=== PATIENT | female | born 1960 | race Caucasian/White ===

== ENCOUNTER 2016-11-27 08:26 | Day surgery (SDC) | payer OTHER ==
[~2016-11-27] VITALS: Ht 165.1 cm; Wt 64.7 kg
[~2016-11-27 08:26] MED LIST: CYAN1TAB29 PO; LEVO25TA4 PO
[2016-11-27] MEDS ORDERED: LACTATED RINGERS 1,000 ML IV SCH (08:59)
[2016-11-27] MEDS ORDERED: LIDOCAINE 1%, 2ML SQ PRN (09:00)
[2016-11-27] MEDS ORDERED: LIDOCAINE 1%, 2ML ONE (09:03)
[2016-11-27] MEDS ORDERED: INDOCYANINE GREEN 25 MG VIAL ONE (09:08)
[2016-11-27] MEDS ORDERED: EPINEPHRINE SYRINGE 0.1 MG/ML, 10ML ONE (09:08)
[2016-11-27 09:15] VITALS: BP 143/89
[2016-11-27] MEDS ORDERED: PROPOFOL 10 MG/ML, 50ML ONE (10:40)
[2016-11-27] MEDS ORDERED: ONDANSETRON 2MG/ML, 2ML IVPush PRN (12:00)
[2016-11-27] MEDS ORDERED: FENTANYL PF 100 MCG/2ML IV PRN (12:00)
[2016-11-27] MEDS ORDERED: METOCLOPRAMIDE 5 MG/ML, 2ML IV PRN (12:00)
[2016-11-27] MEDS ORDERED: OXYcodone 5 MG/5 ML ORAL.SOL UDC PO PRN (12:00)
[2016-11-27] MEDS ORDERED: LABETALOL 5MG/ML, 20ML IV PRN (12:00)
[2016-11-27] MEDS ORDERED: hydrALAzine 20 MG/ML, 1ML IV PRN (12:00)
[2016-11-27] MEDS ORDERED: MIDAZOLAM 1 MG/ML, 2ML IV PRN (12:00)
[2016-11-27] MEDS ORDERED: MEPERIDINE/PF 25MG/0.5ML IVPush PRN (12:00)
[2016-11-27] MEDS ORDERED: EPHEDRINE 50 MG/ML, 1ML IVPush PRN (12:00)
[2016-11-27] MEDS ORDERED: ALBUTEROL SULFATE 2.5 MG/3 ML NPPB PRN (12:00)
[2016-11-27] MEDS ORDERED: HYDROmorphone 1 MG/ML, 1ML IV PRN (12:00)
== END 2016-11-27 13:45 ==
LOC: OUT 08:26
PROVIDERS: ATTEND Internal Medicine Geriatric Medicine
DX: K63.5 Polyp of colon (principal); K62.1 Rectal polyp; D12.8 Benign neoplasm of rectum
CPT/HCPCS: 45380; 45385; 45392; 88172; 88173; 88305; J2704; J3490; J7120

== ENCOUNTER 2017-02-05 08:11 | Day surgery (SDC) | payer OTHER ==
[~2017-02-05] VITALS: Ht 164.3 cm; Wt 63.6 kg
[~2017-02-05 08:11] MED LIST changes: +LISI1TAB3 PO
[2017-02-05] MEDS ORDERED: LACTATED RINGERS 1,000 ML IV SCH (08:42)
[2017-02-05 08:44] VITALS: BP 134/87
[2017-02-05 09:11] LABS: ASPARTATE AMINO TRANSFERASE 19 U/L (15-37); BLOOD UREA NITROGEN 12 mg/dL (7-18)
[2017-02-05] MEDS ORDERED: FENTANYL PF 100 MCG/2ML ONE (10:40)
[2017-02-05] MEDS ORDERED: MIDAZOLAM 1 MG/ML, 2ML ONE (10:41)
[2017-02-05] MEDS ORDERED: PROPOFOL 50 ML ONE (10:43)
[2017-02-05] MEDS ORDERED: FENTANYL PF 100 MCG/2ML IV PRN (11:30)
[2017-02-05] MEDS ORDERED: LABETALOL 5MG/ML, 20ML IV PRN (11:30)
[2017-02-05] MEDS ORDERED: OXYcodone 5 MG/5 ML ORAL.SOL UDC PO PRN (11:30)
[2017-02-05] MEDS ORDERED: ACETAMINOPHEN 325 MG TABLET PO PRN (11:30)
[2017-02-05] MEDS ORDERED: HYDROmorphone 1 MG/ML, 1ML IV PRN (11:30)
[2017-02-05] MEDS ORDERED: ONDANSETRON 2MG/ML, 2ML IVPush PRN (11:30)
[2017-02-05] MEDS ORDERED: PROMETHAZINE 25 MG/ML, 1ML IV PRN (11:30)
[2017-02-05] MEDS ORDERED: hydrALAzine 20 MG/ML, 1ML IV PRN (11:30)
[2017-02-05] MEDS ORDERED: MEPERIDINE/PF 25MG/0.5ML IVPush PRN (11:30)
[2017-02-05] MEDS ORDERED: ONDANSETRON 2MG/ML, 2ML ONE (16:04)
[2017-02-05] MEDS ORDERED: PHENYLEPHRINE 10 MG/ML ONE (16:04)
[2017-02-05] MEDS ORDERED: METOCLOPRAMIDE 5 MG/ML, 2ML ONE (16:04)
[2017-02-05] MEDS ORDERED: KETAMINE 10 MG/ML, 20ML ONE (16:04)
== END 2017-02-05 14:10 ==
LOC: OUT 08:11
PROVIDERS: ATTEND Internal Medicine Geriatric Medicine
DX: K62.1 Rectal polyp (principal); K62.3 Rectal prolapse; I10 Essential (primary) hypertension
CPT/HCPCS: 36415; 45338; 80053; 88305; J2250; J2370; J2405; J2704; J2765; J3010; J7120